=== PATIENT | male | born 1980 | race Caucasian/White ===

== ENCOUNTER 2017-08-23 12:15 | Inpatient (IN) | payer OTHER ==
[2017-08-23 13:54] VITALS: BMI 23.2
--- NOTE | 2017-08-23 14:43 | HP ---
CIWA Score - CIWA Score Nausea/Vomitin Muscle Tremors: 3 Anxiety: 3 Agitation: 3 Paroxysmal Sweats: 2 Orientation: 0-Oriented Tacttile Disturbances: 2-Mild Itch/Numbness/Burn Auditory Disturbances: 2-Mild Harshness/Frighten Visual Disturbances: 1-Very Mild Sensitivity Headache: 2-Mild CIWA-Ar Total Score: 21 Admission ROS BHS - HPI Chief Complaint: I NEED HELP TO STOP XANAX,COCAINE,MARIJUANA,HEROIN,MMTP 50 MGS/DAY Allergies/Adverse Reactions: Allergies Allergy/AdvReac Type Severity Reaction Status Date / Time No Known Drug Allergies Allergy Verified 06/18/15 17:49 shellfish derived Allergy Verified 08/23/17 14:39 History of Present Illness: THIS 36 YEARS OLD MALE WITH XANAX,COCAINE,MARIJUANA DEPENDENCE,HEROIN ABUSED, MMTP 50 MGS/DAY SYNCOPE DRUG RELATED HEPATITIS C S/P LEFT HIP REPLACEMENT ANXIETY,DEPRESSION,ADHD NICOTINE DEPENDENCE S/P LEFT HIP REPLACEMENT FOR OSTEOPOROSIS IN 07/25 AT [facility] CHRONIC WEIGHT LOSS LONGEST PERIOD OF SOBRIETY 2 YEARS Exam Limitations: No Limitations - Ebola screening Have you traveled outside of the country in the last 21 days: No (N) Have you had contact with anyone from an Ebola affected area: No Have you been sick,other than usual withdrawal symptoms: No Do you have a fever: No - Review of Systems Constitutional: Chills, Loss of Appetite, Malaise, Night Sweats, Changes in sleep, Weakness, Unintentional Wgt. Loss EENT: reports: Tearing, Nose Congestion Respiratory: reports: No Symptoms reported, Other (HISTORY OF ASTHMA) Cardiac: reports: No Symptoms Reported GI: reports: Diarrhea, Nausea, Poor Appetite, Vomiting, Abdominal cramping : reports: No Symptoms Reported Musculoskeletal: reports: Back Pain, Joint Pain, Joint Stiffness, Other (SCAR LEFT HIP) Integumentary: reports: Dryness Neuro: reports: Headache, Tremors Endocrine: reports: No Symptoms Reported Hematology: reports: No Symptoms Reported Psychiatric: reports: No Sypmtoms Reported, Judgement Intact, Mood/Affect Appropiate, Orientated x3, Anxious, Depressed, other (ADHD) Patient History - Patient Medical History Hx Asthma: Yes (ON ALBUEROL INHALER) Hx Chronic Obstructive Pulmonary Disease (COPD): No Hx Cancer: No Hx Cardiac Disorders: No Hx Congestive Heart Failure: No Hx Hypertension: No Hx Hypercholesterolemia: No Hx Pacemaker: No HX Cerebrovascular Accident: No Hx Seizures: No Hx Dementia: No Hx Diabetes: No Hx Gastrointestinal Disorders: No Hx Liver Disease: No Hx Genitourinary Disorders: No Hx Sexually Transmitted Disorders: No Hx Renal Disease (ESRD): No Hx Thyroid Disease: No Hx Human Immunodeficiency Virus (HIV): No (LAST 04/24 NEGATIVE) Hx Hepatitis C: Yes (NO TREATMENT,FOLLOW UP WITH PMD) Hx Depression: Yes (ANXIETY,ADHD) Hx Suicide Attempt: No Hx Bipolar Disorder: No Hx Schizophrenia: No Other Medical History: NO SUICIDAL,NO HOMICIDAL,BACK PAIN,S/P LEFTR HIP REPLACEMANT - Patient Surgical History Past Surgical History: Yes Hx Orthopedic Surgery: Yes (S/P LEFT HIP REPLACEMENT IN 07/25) - PPD History Previous Implant?: Yes Documented Results: Negative w/o proof Implanted On Prior [facility] Admission?: Yes Date: 06/20/15 PPD to be Administered?: Yes - Smoking Cessation Smoking history: Current every day smoker Have you smoked in the past 12 months: Yes Aproximately how many cigarettes per day: 20 Hx Chewing Tobacco Use: No Initiated information on smoking cessation: Yes 'Breaking Loose' booklet given: 08/23/17 - Substance & Tx. History Hx Alcohol Use: No Hx Substance Use: Yes Substance Use Type: Cocaine, Heroin, Marijuana, Tranquilizers Hx Substance Use Treatment: Yes (LAST 07/25 [facility]) - Substances Abused Alprazolam (Xanax) Route: Oral Frequency: Daily Amount used: 10mg Age of first use: 34 Date of Last Use: 08/22/17 Heroin Route: Injection Frequency: Daily Amount used: 2 bags Age of first use: 24 Date of Last Use: 08/21/17 Cocaine Route: Injection Frequency: Daily Amount used: $80 Age of first use: 24 Date of Last Use: 08/22/17 Marijuana/Hashish Route: Smoking Frequency: Daily Amount used: 2-3 puffs Age of first use: 17 Date of Last Use: 08/23/17 Family Disease History - Family Disease History Family History: Denies Admission Physical Exam BHS - Vital Signs Vital Signs: Vital Signs - 24 hr 08/23/17 13:48 Temperature 97.7 F Pulse Rate 79 Respiratory 18 Rate Blood Pressure 113/64 - Physical General Appearance: Yes: Moderate Distress, Tremorous, Irritable, Sweating, Anxious HEENTM: Yes: Normal ENT Inspection, MARAH, Pharynx Normal Respiratory: Yes: No Respiratory Distress, Wheezing Neck: Yes: Within Normal Limits, Supple, Trachea in good position Breast: Yes: Within Normal Limits Cardiology: Yes: Within Normal Limits, Regular Rhythm, Regular Rate, S1, S2 Abdominal: Yes: Within Normal Limits, Normal Bowel Sounds, Non Tender, Flat, Soft Genitourinary: Yes: Within Normal Limits Back: Yes: Muscle Spasm Musculoskeletal: Yes: full range of Motion, Back pain, Muscle Pain Extremities: Yes: Tremors, Other (S/P LEFT HIP REPLACEMENT) 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: 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 NML intact, Alert, Motor Strength 5/5, Normal Mood /Affect Integumentary: Yes: Dry Lymphatic: Yes: Within Normal Limits - Diagnostic (1) Sedative hypnotic or anxiolytic dependence Current Visit: No Status: Acute (2) Cocaine dependence with withdrawal Current Visit: No Status: Acute (3) Cannabis dependence Current Visit: Yes Status: Acute (4) Heroin abuse Current Visit: Yes Status: Acute (5) Attention deficit disorder (ADD) Current Visit: No Status: Acute (6) Bronchial asthma Current Visit: No Status: Chronic Qualifiers: Asthma severity: mild intermittent Asthma complication type: uncomplicated (7) Hepatitis C Current Visit: No Status: Chronic Qualifiers: Viral hepatitis chronicity: chronic Hepatic coma status: without hepatic coma Qualified Code(s): B18.2 - Chronic viral hepatitis C (8) Methadone maintenance therapy patient Current Visit: No Status: Chronic (9) Weight loss Current Visit: Yes Status: Acute Cleared for Admission [facility] - Detox or Rehab [facility] Level of Care: Medically Managed Detox Regimen/Protocol: Valium [facility] Breath Alcohol Content Breath Alcohol Content: 0 Urine Drug Screen - Results Drug Screen Negative: No Urine Drug Screen Results: THC-Marijuana, CARLITO-Cocaine, OPI-Opiates, BZO- Benzodiazepines, MTD-Methadone, TCA-Tricyclic Antidepress
[2017-08-23] MEDS ORDERED: P-EPHED 60MG/TRIPROLIDI 2.5MG TABLET PO PRN (15:05)
[2017-08-23] MEDS ORDERED: MAGNESIUM CITRATE 300 ML BOTTLE PO PRN (15:05)
[2017-08-23] MEDS ORDERED: MAGNESIUM HYDROX 2400MG/30ML ORAL SUSPENSION 30 ML CUP PO PRN (15:05)
[2017-08-23] MEDS ORDERED: IBUPROFEN 400 MG TABLET (FP) PO PRN (15:05)
[2017-08-23] MEDS ORDERED: guaiFENesin/D-METHORPHAN HB 10 ML UNIT-DOSE CUPS PO PRN (15:05)
[2017-08-23] MEDS ORDERED: LOPERAMIDE HCL 2 MG CAPSULE PO PRN (15:05)
[2017-08-23] MEDS ORDERED: ACETAMINOPHEN 325 MG TABLET (FP) PO PRN (15:05)
[2017-08-23] MEDS ORDERED: MENTHOL/PHENOL 1 EACH UD MM PRN (15:05)
[2017-08-23] MEDS ORDERED: ALBUTEROL SO4 18 GM HFA INHALER IH PRN (15:09)
[2017-08-23] MEDS ORDERED: diazePAM 5 MG TABLET PO ONE (17:00)
[2017-08-23] MEDS: THIAMINE HCL 100 MG TABLET (FP) PO SCH (22:26)
[2017-08-23] MEDS: MAG HYDROX/AL HYDROX/SIMETH 30 ML UNIT-DOSE CUP PO PRN (22:27)
[2017-08-23] MEDS: diazePAM 5 MG TABLET PO SCH (22:27)
[2017-08-23 23:34] LABS: URINE APPEARANCE TURBID; URINE BILIRUBIN NEGATIVE (NEGATIVE); URINE BLOOD NEGATIVE (NEGATIVE); URINE COLOR YELLOW; URINE GLUCOSE (UA) NEGATIVE (NEGATIVE); URINE KETONE NEGATIVE (NEGATIVE); URINE LEUK ESTERASE NEGATIVE (NEGATIVE); URINE NITRITE NEGATIVE (NEGATIVE); URINE PROTEIN NEGATIVE (NEGATIVE); URINE UROBILINOGEN NEGATIVE mg/dL (0.2-1.0)
[2017-08-24] MEDS: diazePAM 5 MG TABLET PO PRN ×2 (03:40→17:15)
[2017-08-24] MEDS: diazePAM 5 MG TABLET PO SCH ×3 (05:37→21:58)
[2017-08-24] MEDS ORDERED: METHADONE HCL 40 MG DISPERSABLE TABLET PO SCH (08:30)
--- NOTE | 2017-08-24 09:20 | EKG ---
Test Reason : Blood Pressure : / mmHG Vent. Rate : 062 BPM Atrial Rate : 062 BPM P-R Int : 162 ms QRS Dur : 100 ms QT Int : 408 ms P-R-T Axes : 015 085 078 degrees QTc Int : 414 ms NORMAL SINUS RHYTHM WITH SINUS ARRHYTHMIA NO PREVIOUS ECGS AVAILABLE Confirmed by ELIZABETH RICHARDSON MD ([id number]) on 08/24/2017 9:20:20 AM Referred By: Confirmed By:ELIZABETH RICHARDSON MD
[2017-08-24] MEDS ORDERED: METHADONE HCL 10 MG TABLET ONE (09:25)
[2017-08-24] MEDS ORDERED: METHADONE HCL 40 MG DISPERSABLE TABLET ONE (09:25)
[2017-08-24] MEDS ORDERED: METHADONE 40 MG, METHADONE 10 MG PO ONE (09:30)
[2017-08-24 09:53] LABS: HEMATOCRIT 42.4 % (35.4-49); MCH 26.3 pg (25.7-33.7); MCHC 30.6 g/dl (32.0-35.9); MEAN CELL VOLUME 85.8 fl (80-96); MEAN PLT VOLUME 7.8 fl (7.5-11.1); PLATELET COUNT 295 K/MM3 (134-434); RBC 4.94 M/mm3 (4.00-5.60); RDW 16.9 % (11.9-15.9); WHITE BLOOD COUNT 6.4 K/mm3 (4.0-10.0)
[2017-08-24 10:06] LABS: ANION GAP 9 (8-16); BLOOD UREA NITROGEN 15 mg/dL (7-18); CALCIUM 8.7 mg/dL (8.5-10.1); CHLORIDE 104 mmol/L (98-107); CO2 27 mmol/L (21-32); GLUCOSE,RANDOM 90 mg/dL (74-106); POTASSIUM 3.8 mmol/L (3.5-5.1); SODIUM 140 mmol/L (136-145)
[2017-08-24 10:13] LABS: ALK PHOS 107 U/L (45-117); BILIRUBIN,TOTAL 0.2 mg/dL (0.2-1.0); SGOT/AST 37 U/L (15-37); SGPT/ALT 61 U/L (12-78); TOT PROT 6.9 g/dl (6.4-8.2)
--- NOTE | 2017-08-24 10:38 | PN ---
S CIWA - CIWA Score Nausea/Vomitin Muscle Tremors: 3 Anxiety: 3 Agitation: 3 Paroxysmal Sweats: 1-Minimal Palms Moist Orientation: 0-Oriented Tacttile Disturbances: 1-Very Mild Itch/Numbness Auditory Disturbances: 1-Very Mild Visual Disturbances: 0-None Headache: 2-Mild CIWA-Ar Total Score: 17 BHS Progress Note (SOAP) Subjective: alert,irritable,anxious,interrupted sleep,tremor,pain in the body Objective: 08/24/17 10:34 Last Vital Signs Temp Pulse Resp BP Pulse Ox 97.7 F 56 L 18 117/57 08/24/17 06:00 08/24/17 06:00 08/24/17 06:00 08/24/17 06:00 08/24/17 10:35 ekg nsr with sinus arrhythmia Laboratory Last Values WBC 6.4 K/mm3 (4.0-10.0) 08/24/17 07:30 RBC 4.94 M/mm3 (4.00-5.60) 08/24/17 07:30 Hgb 13.0 GM/dL (11.7-16.9) 08/24/17 07:30 Hct 42.4 % (35.4-49) 08/24/17 07:30 MCV 85.8 fl (80-96) 08/24/17 07:30 MCH 26.3 pg (25.7-33.7) D 08/24/17 07:30 MCHC 30.6 g/dl (32.0-35.9) L 08/24/17 07:30 RDW 16.9 % (11.9-15.9) H D 08/24/17 07:30 Plt Count 295 K/MM3 (134-434) 08/24/17 07:30 MPV 7.8 fl (7.5-11.1) 08/24/17 07:30 Sodium 140 mmol/L (136-145) 08/24/17 07:30 Potassium 3.8 mmol/L (3.5-5.1) 08/24/17 07:30 Chloride 104 mmol/L (98-107) 08/24/17 07:30 Carbon Dioxide 27 mmol/L (21-32) 08/24/17 07:30 Anion Gap 9 (8-16) 08/24/17 07:30 BUN 15 mg/dL (7-18) D 08/24/17 07:30 Creatinine 1.0 mg/dL (0.7-1.3) 08/24/17 07:30 Creat Clearance w eGFR > 60 (>60) 08/24/17 07:30 Random Glucose 90 mg/dL (74-106) 08/24/17 07:30 Calcium 8.7 mg/dL (8.5-10.1) 08/24/17 07:30 Total Bilirubin 0.2 mg/dL (0.2-1.0) D 08/24/17 07:30 AST 37 U/L (15-37) 08/24/17 07:30 ALT 61 U/L (12-78) 08/24/17 07:30 Alkaline Phosphatase 107 U/L (45-117) 08/24/17 07:30 Total Protein 6.9 g/dl (6.4-8.2) 08/24/17 07:30 Albumin 3.0 g/dl (3.4-5.0) L 08/24/17 07:30 Urine Color Yellow 08/23/17 23:10 Urine Appearance Turbid 08/23/17 23:10 Urine pH 5.0 (5.0-8.0) 08/23/17 23:10 Ur Specific [place] 1.020 (1.001-1.035) 08/23/17 23:10 Urine Protein Negative (NEGATIVE) 08/23/17 23:10 Urine Glucose (UA) Negative (NEGATIVE) 08/23/17 23:10 Urine Ketones Negative (NEGATIVE) 08/23/17 23:10 Urine Blood Negative (NEGATIVE) 08/23/17 23:10 Urine Nitrite Negative (NEGATIVE) 08/23/17 23:10 Urine Bilirubin Negative (NEGATIVE) 08/23/17 23:10 Urine Urobilinogen Negative mg/dL (0.2-1.0) 08/23/17 23:10 Ur Leukocyte Esterase Negative (NEGATIVE) 08/23/17 23:10 Assessment: 08/24/17 10:36 withdrawal symptom Plan: continue detox
[2017-08-24] MEDS: PRENATAL VITAMINS W/ FOLIC ACID TABLET (FP) PO SCH (10:40)
[2017-08-24] MEDS: MAG HYDROX/AL HYDROX/SIMETH 30 ML UNIT-DOSE CUP PO PRN (11:56)
--- NOTE | 2017-08-24 12:38 | CONSULT ---
[facility] Psychiatric Consult - Data Date of interview: 08/24/17 Admission source: [facility] Identifying data: Pt. is a 36 year old male, single, father of one, unemployed, and homeless. This is one of multiple admissions for patient. Pt. admitted for cocaine, heroin, benzodiazepine, and marijuana cannabis. Substance Abuse History: Following information confirmed with Ms. Juarez: Smoking Cessation. Smoking history: Current every day smoker. Have you smoked in the past 12 months: Yes. Aproximately how many cigarettes per day: 20. Hx Chewing Tobacco Use: No. Initiated information on smoking cessation: Yes. ' Breaking Loose' booklet given: 08/23/17. - Substance & Tx. History. Hx Alcohol Use: No. Hx Substance Use: Yes. Substance Use Type: Cocaine, Heroin, Marijuana, Tranquilizers. Hx Substance Use [facility]: Yes ([facility] . - Substances Abused. Alprazolam (Xanax). Route: Oral. Frequency: Daily. Amount used: 10mg. Age of first use: 34. Date of Last Use: 08/22/17. Heroin. Route: Injection. Frequency: Daily. Amount used: 2 bags. Age of first use: 24. Date of Last Use: 08/21/17. Cocaine. Route: Injection. Frequency: Daily. Amount used: $80. Age of first use: 24. Date of Last Use: 08/22/17. Marijuana/Hashish. Route: Smoking. Frequency: Daily. Amount used: 2-3 puffs. Age of first use: 17 Medical History: Asthma, Hep C Psychiatric History: Patient's first encounter with a psychiatrist was at the age of [age]. Pt. was diagnosed with ADHD and started on Ritalin. Reports taking Ritalin from [age] years of age. Most recent outpatient psychiatric care was provided five months ago by Dr. Roberson in the [place]. Pt. reports being prescribed klonopin. Pt. denies h/o psychiatric hospitalization and suicide attempt. Physical/Sexual Abuse/Trauma History: Denies. Mental Status Exam - Mental Status Exam Alert and Oriented to: Time, Place, Person Cognitive Function: Good Patient Appearance: Well Groomed Mood: Euthymic Affect: Mood Congruent Patient Behavior: Cooperative Speech Pattern: Appropriate Voice Loudness: Normal Thought Process: Goal Oriented Thought Disorder: Not Present Hallucinations: Denies Suicidal Ideation: Denies Homicidal Ideation: Denies Insight/Judgement: Poor Sleep: Poorly Appetite: Fair Muscle strength/Tone: Normal Gait/Station: Normal Psychiatric Findings - Problem List ([place] 1, 2,3) (1) Cannabis dependence Current Visit: Yes Status: Acute (2) Sedative hypnotic or anxiolytic dependence Current Visit: Yes Status: Acute (3) Nicotine dependence Current Visit: Yes Status: Chronic Qualifiers: Nicotine product type: cigarettes Substance use status: uncomplicated Qualified Code(s): F17.210 - Nicotine dependence, cigarettes, uncomplicated (4) Substance-induced sleep disorder Current Visit: Yes Status: Acute (5) Cocaine dependence Current Visit: Yes Status: Acute - Initial Treatment Plan Initial Treatment Plan: Psychoeducation provided. Detoxification progress. Ambien 10mg qhs PRN. Benefits and side effects (sleep walking) discussed. Verbal consent given. Will continue to monitor.
[2017-08-24] MEDS: hydrOXYzine PAMOATE 25 MG CAPSULE (FP) PO PRN ×2 (17:16→22:00)
[2017-08-24] MEDS: ZOLPIDEM TARTRATE 10 MG TABLET (PARK CARE ONLY) PO PRN (21:58)
[2017-08-24] MEDS: THIAMINE HCL 100 MG TABLET (FP) PO SCH (21:58)
[2017-08-25] MEDS: MAG HYDROX/AL HYDROX/SIMETH 30 ML UNIT-DOSE CUP PO PRN ×3 (01:57→22:38)
[2017-08-25] MEDS: diazePAM 5 MG TABLET PO PRN ×3 (01:57→14:39)
[2017-08-25] MEDS ORDERED: METHADONE HCL 40 MG DISPERSABLE TABLET ONE (05:14)
[2017-08-25] MEDS ORDERED: METHADONE HCL 10 MG TABLET ONE (05:14)
[2017-08-25] MEDS: METHADONE 40 MG, METHADONE 10 MG PO SCH (05:49)
[2017-08-25] MEDS: diazePAM 5 MG TABLET PO SCH ×2 (10:29→22:36)
[2017-08-25] MEDS: PRENATAL VITAMINS W/ FOLIC ACID TABLET (FP) PO SCH (10:29)
--- NOTE | 2017-08-25 11:57 | PN ---
S CIWA - CIWA Score Nausea/Vomitin Muscle Tremors: 3 Anxiety: 3 Agitation: 2 Paroxysmal Sweats: 2 Orientation: 0-Oriented Tacttile Disturbances: 1-Very Mild Itch/Numbness Auditory Disturbances: 1-Very Mild Visual Disturbances: 0-None Headache: 2-Mild CIWA-Ar Total Score: 17 S Progress Note (SOAP) Subjective: ALERT,IRRITABLE,ANXIOUS,INTERRUPTED SLEEP,TREMOR,INTERRUPTED SLEEP, Objective: 08/25/17 11:56 Vital Signs Temperature 98.1 F 08/25/17 09:53 Pulse Rate 66 08/25/17 09:53 Respiratory Rate 18 08/25/17 09:53 Blood Pressure 105/54 08/25/17 09:53 O2 Sat by Pulse Oximetry (%) 08/25/17 11:57 Laboratory Last Values WBC 6.4 K/mm3 (4.0-10.0) 08/24/17 07:30 RBC 4.94 M/mm3 (4.00-5.60) 08/24/17 07:30 Hgb 13.0 GM/dL (11.7-16.9) 08/24/17 07:30 Hct 42.4 % (35.4-49) 08/24/17 07:30 MCV 85.8 fl (80-96) 08/24/17 07:30 MCH 26.3 pg (25.7-33.7) D 08/24/17 07:30 MCHC 30.6 g/dl (32.0-35.9) L 08/24/17 07:30 RDW 16.9 % (11.9-15.9) H D 08/24/17 07:30 Plt Count 295 K/MM3 (134-434) 08/24/17 07:30 MPV 7.8 fl (7.5-11.1) 08/24/17 07:30 Sodium 140 mmol/L (136-145) 08/24/17 07:30 Potassium 3.8 mmol/L (3.5-5.1) 08/24/17 07:30 Chloride 104 mmol/L (98-107) 08/24/17 07:30 Carbon Dioxide 27 mmol/L (21-32) 08/24/17 07:30 Anion Gap 9 (8-16) 08/24/17 07:30 BUN 15 mg/dL (7-18) D 08/24/17 07:30 Creatinine 1.0 mg/dL (0.7-1.3) 08/24/17 07:30 Creat Clearance w eGFR > 60 (>60) 08/24/17 07:30 Random Glucose 90 mg/dL (74-106) 08/24/17 07:30 Calcium 8.7 mg/dL (8.5-10.1) 08/24/17 07:30 Total Bilirubin 0.2 mg/dL (0.2-1.0) D 08/24/17 07:30 AST 37 U/L (15-37) 08/24/17 07:30 ALT 61 U/L (12-78) 08/24/17 07:30 Alkaline Phosphatase 107 U/L (45-117) 08/24/17 07:30 Total Protein 6.9 g/dl (6.4-8.2) 08/24/17 07:30 Albumin 3.0 g/dl (3.4-5.0) L 08/24/17 07:30 Urine Color Yellow 08/23/17 23:10 Urine Appearance Turbid 08/23/17 23:10 Urine pH 5.0 (5.0-8.0) 08/23/17 23:10 Ur Specific [place] 1.020 (1.001-1.035) 08/23/17 23:10 Urine Protein Negative (NEGATIVE) 08/23/17 23:10 Urine Glucose (UA) Negative (NEGATIVE) 08/23/17 23:10 Urine Ketones Negative (NEGATIVE) 08/23/17 23:10 Urine Blood Negative (NEGATIVE) 08/23/17 23:10 Urine Nitrite Negative (NEGATIVE) 08/23/17 23:10 Urine Bilirubin Negative (NEGATIVE) 08/23/17 23:10 Urine Urobilinogen Negative mg/dL (0.2-1.0) 08/23/17 23:10 Ur Leukocyte Esterase Negative (NEGATIVE) 08/23/17 23:10 RPR Titer Nonreactive (NONREACTIVE) 08/24/17 07:30 HIV 1&2 Antibody Screen Negative 08/23/17 14:00 HIV P24 Antigen Negative 08/23/17 14:00 Assessment: 08/25/17 11:59 WITHDRAWAL SYMPTOM Plan: CONTINUE DETOX,PATIENT IS KNOWN CASE OF HEPATITIS C HAS BEEN FOLLOW UP WITH HIS PMD AWAITING FOR TREATMENT
--- NOTE | 2017-08-25 12:21 | EKG ---
Test Reason : Blood Pressure : / mmHG Vent. Rate : 062 BPM Atrial Rate : 062 BPM P-R Int : 174 ms QRS Dur : 108 ms QT Int : 452 ms P-R-T Axes : 053 083 078 degrees QTc Int : 458 ms NORMAL SINUS RHYTHM WITH SINUS ARRHYTHMIA NORMAL ECG WHEN COMPARED WITH ECG OF 23-AUG-2017 19:08, NO SIGNIFICANT CHANGE WAS FOUND Confirmed by JEVON LEVI MD ([id number]) on 08/25/2017 12:21:09 PM Referred By: Confirmed By:JEVON LEVI MD
[2017-08-25] MEDS: PANTOPRAZOLE 40 MG TABLET (FP) PO SCH (18:17)
[2017-08-25] MEDS: THIAMINE HCL 100 MG TABLET (FP) PO SCH (22:36)
[2017-08-25] MEDS: ZOLPIDEM TARTRATE 10 MG TABLET (PARK CARE ONLY) PO PRN (22:36)
[2017-08-26] MEDS: diazePAM 5 MG TABLET PO PRN ×3 (00:54→13:39)
[2017-08-26] MEDS ORDERED: METHADONE HCL 40 MG DISPERSABLE TABLET ONE (05:03)
[2017-08-26] MEDS ORDERED: METHADONE HCL 10 MG TABLET ONE (05:03)
[2017-08-26] MEDS: METHADONE 40 MG, METHADONE 10 MG PO SCH (05:04)
[2017-08-26] MEDS: PRENATAL VITAMINS W/ FOLIC ACID TABLET (FP) PO SCH (10:42)
[2017-08-26] MEDS: PANTOPRAZOLE 40 MG TABLET (FP) PO SCH (10:43)
[2017-08-26] MEDS: diazePAM 5 MG TABLET PO SCH ×2 (10:43→23:01)
[2017-08-26] MEDS: hydrOXYzine PAMOATE 25 MG CAPSULE (FP) PO PRN (10:44)
--- NOTE | 2017-08-26 12:11 | PN ---
BHS Progress Note (SOAP) Subjective: alert oriented x 3 calm no sweat less tremor tolerate food and fluid well Objective: 08/26/17 12:10 Vital Signs Temperature 98.6 F 08/26/17 11:19 Pulse Rate 62 08/26/17 11:19 Respiratory Rate 20 08/26/17 11:19 Blood Pressure 94/56 08/26/17 11:19 O2 Sat by Pulse Oximetry (%) Laboratory Last Values WBC 6.4 K/mm3 (4.0-10.0) 08/24/17 07:30 RBC 4.94 M/mm3 (4.00-5.60) 08/24/17 07:30 Hgb 13.0 GM/dL (11.7-16.9) 08/24/17 07:30 Hct 42.4 % (35.4-49) 08/24/17 07:30 MCV 85.8 fl (80-96) 08/24/17 07:30 MCH 26.3 pg (25.7-33.7) D 08/24/17 07:30 MCHC 30.6 g/dl (32.0-35.9) L 08/24/17 07:30 RDW 16.9 % (11.9-15.9) H D 08/24/17 07:30 Plt Count 295 K/MM3 (134-434) 08/24/17 07:30 MPV 7.8 fl (7.5-11.1) 08/24/17 07:30 Sodium 140 mmol/L (136-145) 08/24/17 07:30 Potassium 3.8 mmol/L (3.5-5.1) 08/24/17 07:30 Chloride 104 mmol/L (98-107) 08/24/17 07:30 Carbon Dioxide 27 mmol/L (21-32) 08/24/17 07:30 Anion Gap 9 (8-16) 08/24/17 07:30 BUN 15 mg/dL (7-18) D 08/24/17 07:30 Creatinine 1.0 mg/dL (0.7-1.3) 08/24/17 07:30 Creat Clearance w eGFR > 60 (>60) 08/24/17 07:30 Random Glucose 90 mg/dL (74-106) 08/24/17 07:30 Calcium 8.7 mg/dL (8.5-10.1) 08/24/17 07:30 Total Bilirubin 0.2 mg/dL (0.2-1.0) D 08/24/17 07:30 AST 37 U/L (15-37) 08/24/17 07:30 ALT 61 U/L (12-78) 08/24/17 07:30 Alkaline Phosphatase 107 U/L (45-117) 08/24/17 07:30 Total Protein 6.9 g/dl (6.4-8.2) 08/24/17 07:30 Albumin 3.0 g/dl (3.4-5.0) L 08/24/17 07:30 Urine Color Yellow 08/23/17 23:10 Urine Appearance Turbid 08/23/17 23:10 Urine pH 5.0 (5.0-8.0) 08/23/17 23:10 Ur Specific [place] 1.020 (1.001-1.035) 08/23/17 23:10 Urine Protein Negative (NEGATIVE) 08/23/17 23:10 Urine Glucose (UA) Negative (NEGATIVE) 08/23/17 23:10 Urine Ketones Negative (NEGATIVE) 08/23/17 23:10 Urine Blood Negative (NEGATIVE) 08/23/17 23:10 Urine Nitrite Negative (NEGATIVE) 08/23/17 23:10 Urine Bilirubin Negative (NEGATIVE) 08/23/17 23:10 Urine Urobilinogen Negative mg/dL (0.2-1.0) 08/23/17 23:10 Ur Leukocyte Esterase Negative (NEGATIVE) 08/23/17 23:10 RPR Titer Nonreactive (NONREACTIVE) 08/24/17 07:30 HIV 1&2 Antibody Screen Negative 08/23/17 14:00 HIV P24 Antigen Negative 08/23/17 14:00 lab noted Assessment: 08/26/17 12:11 mild withdrawal sx Plan: medically supervised detox
[2017-08-26] MEDS: ZOLPIDEM TARTRATE 10 MG TABLET (PARK CARE ONLY) PO PRN (23:01)
[2017-08-26] MEDS: THIAMINE HCL 100 MG TABLET (FP) PO SCH (23:01)
[2017-08-27] MEDS ORDERED: METHADONE HCL 40 MG DISPERSABLE TABLET ONE (04:20)
[2017-08-27] MEDS ORDERED: METHADONE HCL 10 MG TABLET ONE (04:20)
[2017-08-27] MEDS: METHADONE 40 MG, METHADONE 10 MG PO SCH (05:37)
[2017-08-27 06:51] VITALS: BP 124/67; PULSE 60; TEMP 98.5
--- NOTE | 2017-08-27 08:30 | DS ---
[facility] Detox Discharge Summary Admission Date: 08/23/17 Discharge Date: 08/27/17 - History Present History: Cannabis Dependence, Cocaine Dependence, Sedative Dependence Additional Comments: follow up with after care program as arrangement Pertinent Past History: bronchial asthma hepatitis c methadone maintenance therapy patient weight loss - Physical Exam Results Vital Signs: Vital Signs Temperature 98.5 F 08/27/17 06:00 Pulse Rate 60 08/27/17 06:00 Respiratory Rate 18 08/27/17 06:00 Blood Pressure 124/67 08/27/17 06:00 O2 Sat by Pulse Oximetry (%) Pertinent Admission Physical Exam Findings: withdrawal sign and symptom - Treatment Hospital Course: Detox Protocol Followed, Detoxed Safely, Responded well, Discharged Condition Good Patient has Accepted a Rehab Referral to: declined - Medication Discharge Medications: Ambulatory Orders Albuterol Sulfate Inhaler - [Ventolin Hfa Inhaler -] 2 inh PO Q4H PRN 06/18/15 - Diagnosis (1) Sedative hypnotic or anxiolytic dependence Current Visit: Yes Status: Acute (2) Cocaine dependence with withdrawal Current Visit: Yes Status: Acute (3) Cannabis dependence Current Visit: Yes Status: Acute (4) Heroin abuse Current Visit: Yes Status: Acute (5) Attention deficit disorder (ADD) Current Visit: No Status: Chronic (6) Bronchial asthma Current Visit: No Status: Chronic Qualifiers: Asthma severity: mild intermittent Asthma complication type: uncomplicated (7) Hepatitis C Current Visit: No Status: Chronic Qualifiers: Viral hepatitis chronicity: chronic Hepatic coma status: without hepatic coma Qualified Code(s): B18.2 - Chronic viral hepatitis C (8) Methadone maintenance therapy patient Current Visit: No Status: Chronic (9) Weight loss Current Visit: Yes Status: Acute - AMA Did Patient Leave Against Medical Advice: No
[2017-08-27] MEDS: PRENATAL VITAMINS W/ FOLIC ACID TABLET (FP) PO SCH (09:20)
[2017-08-27] MEDS: hydrOXYzine PAMOATE 25 MG CAPSULE (FP) PO PRN (09:21)
[2017-08-27] MEDS: PANTOPRAZOLE 40 MG TABLET (FP) PO SCH (09:22)
[2017-08-27] MEDS ORDERED: diazePAM 5 MG TABLET PO SCH (10:00)
== END 2017-08-27 09:27 | disposition home or self-care (01) | DRG 773 ==
LOC: YASAS 12:15 → Y6N 16:09
PROVIDERS: ADMIT Internal Medicine; ATTEND Internal Medicine
PROC: HZ2ZZZZ Detoxification Services for Substance Abuse Treatment (ICD-10-PCS; principal; 2017-08-23)
DX: F13.230 Sedative, hypnotic or anxiolytic dependence with withdrawal, uncomplicated (principal); F11.20 Opioid dependence, uncomplicated; F14.20 Cocaine dependence, uncomplicated; F12.20 Cannabis dependence, uncomplicated; F17.210 Nicotine dependence, cigarettes, uncomplicated; F90.9 Attention-deficit hyperactivity disorder, unspecified type; F19.282 Other psychoactive substance dependence with psychoactive substance-induced sleep disorder; J45.20 Mild intermittent asthma, uncomplicated; B18.2 Chronic viral hepatitis C; I49.9 Cardiac arrhythmia, unspecified; Z96.642 Presence of left artificial hip joint; Z91.013 Allergy to seafood; Z87.898 Personal history of other specified conditions
CPT/HCPCS: 36415; 80053; 81003; 85027; 86593; 87389; 87522; 93005; 93010

== ENCOUNTER 2019-06-26 15:36 | Inpatient (IN) | payer OTHER ==
[2019-06-26 17:25] VITALS: BMI 27.4
--- NOTE | 2019-06-26 18:25 | HP ---
CIWA Score Nausea/Vomitin-No Nausea/No Vomiting Muscle Tremors: None Anxiety: 4-Mod. Anxious/Guarded Agitation: 2 Paroxysmal Sweats: No Perspiration Orientation: 0-Oriented Tacttile Disturbances: 0-None Auditory Disturbances: 0-None Visual Disturbances: 0-None Headache: 0-None Present CIWA-Ar Total Score: 6 - Admission Criteria OASAS Guidelines: Admission for Medically Managed Detox: Requires at least one of the followin. CIWA greater than 12 2. Seizures within the past 24 hours 3. Delirium tremens within the past 24 hours 4. Hallucinations within the past 24 hours 5. Acute intervention needed for co occurring medical disorder 6. Acute intervention needed for co occurring psychiatric disorder 7. Severe withdrawal that cannot be handled at a lower level of care (continued vomiting, continued diarrhea, abnormal vital signs) requiring intravenous medication and/or fluids 8. Admitting History and Physical - Admission Chief Complaint: detox from benzos History of Present Illness: 38 yo f w/ PMH Asthma, GERD, HCV (treated), polysubstance abuse who comes into [facility] for assistance with detox from benzos. Patient endorses taking 4 xanax daily for the past 12 years with last use this AM. He endorses having seizures secondary to withdrawal in the past. Patient endorses using cocaine IV, approx. $30 per day since he was 23. His last use was last night. Patient states that he snorted 1 dime bag of herion this morning/ before this, he had not used heroin for 5 years and has been on a methadone program for the past 12 years. He endorses taking 100mg of methdone. He goes to the [facility] program. Ismaelt smokes 1ppd since he was 16. Patient uses 4 blunts of marijuana daily. CIWA 6 Will admit for detox 2/2 patient being severely anxious during the interview. History Source: Patient Limitations to Obtaining History: No Limitations - Past Medical History Pulmonary: Yes: Asthma Gastrointestinal: Yes: GERD Hepatobiliary: Yes: Hepatitis C - Past Surgical History Past Surgical History: Yes: Joint Replacement (hip in 2018) - Smoking History Smoking history: Current every day smoker Have you smoked in the past 12 months: Yes Aproximately how many cigarettes per day: 20 - Alcohol/Substance Use Hx Alcohol Use: No Admission ROS S - HPI Allergies/Adverse Reactions: Allergies Allergy/AdvReac Type Severity Reaction Status Date / Time No Known Drug Allergies Allergy Verified 06/26/19 17:05 shellfish derived Allergy Verified 06/26/19 17:05 - Ebola screening Have you traveled outside of the country in the last 21 days: No (NN) Have you had contact with anyone from an Ebola affected area: No Do you have a fever: No - Review of Systems Constitutional: Chills EENT: reports: No Symptoms Reported Respiratory: reports: Shortness of Breath, Wheezing Cardiac: reports: No Symptoms Reported GI: reports: No Symptoms Reported : reports: No Symptoms Reported Musculoskeletal: reports: Joint Pain, Muscle Pain Integumentary: reports: No Symptoms Reported Psychiatric: reports: Orientated x3 Patient History - Patient Medical History Hx Asthma: Yes (ON ALBUEROL INHALER) Hx Chronic Obstructive Pulmonary Disease (COPD): No Hx Cancer: No Hx Cardiac Disorders: No Hx Congestive Heart Failure: No Hx Hypertension: No Hx Hypercholesterolemia: No Hx Pacemaker: No HX Cerebrovascular Accident: No Hx Seizures: No Hx Dementia: No Hx Diabetes: No Hx Gastrointestinal Disorders: No Hx Liver Disease: No Hx Genitourinary Disorders: No Hx Sexually Transmitted Disorders: No Hx Renal Disease (ESRD): No Hx Thyroid Disease: No Hx Human Immunodeficiency Virus (HIV): No (LAST 04/24 NEGATIVE) Hx Hepatitis C: Yes (NO TREATMENT,FOLLOW UP WITH PMD) Hx Depression: Yes (ANXIETY,ADHD) Hx Suicide Attempt: No Hx Bipolar Disorder: No Hx Schizophrenia: No - Patient Surgical History Past Surgical History: Yes Hx Orthopedic Surgery: Yes (S/P LEFT HIP REPLACEMENT IN 07/25) - PPD History Date: 08/25/17 - Smoking Cessation Smoking history: Current every day smoker Have you smoked in the past 12 months: Yes Aproximately how many cigarettes per day: 20 Hx Chewing Tobacco Use: No Initiated information on smoking cessation: Yes 'Breaking Loose' booklet given: 06/26/19 - Substances abused Alprazolam (Xanax) Substance route: Oral Frequency: Daily Amount used: 5 pills Age of first use: 18 Date of last use: 06/26/19 Cocaine Substance route: Injection Frequency: Daily Amount used: 30 dollars Age of first use: 14 Date of last use: 06/25/19 Marijuana/Hashish Substance route: Smoking Frequency: Daily Amount used: 4 blunts Age of first use: 16 Date of last use: 06/26/19 Admission Physical Exam BHS - Vital Signs Vital Signs: Vital Signs - 24 hr 06/26/19 17:01 Temperature 97.8 F Pulse Rate 79 Respiratory 16 Rate - Physical General Appearance: Yes: Mild Distress HEENTM: Yes: EOMI, Normocephalic, Normal Voice, MARAH, Pharynx Normal Respiratory: Yes: Chest Non-Tender, No Respiratory Distress, No Accessory Muscle Use, Wheezing (inspiratory and expiratory) Cardiology: Yes: Regular Rhythm, Regular Rate, S1, S2. 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 II-XII NML intact, Fully Oriented, Alert, Motor Strength 5/5, Normal Mood/Affect, Normal Response Integumentary: Yes: Normal Color, Dry, Track Lopez - Diagnostic (1) Cocaine dependence Current Visit: No Status: Acute (2) Xanax use disorder, severe, dependence Current Visit: No Status: Acute (3) Bronchial asthma Current Visit: No Status: Chronic Qualifiers: Asthma severity: mild intermittent Asthma complication type: uncomplicated (4) Hepatitis C Current Visit: No Status: Chronic Qualifiers: Viral hepatitis chronicity: chronic Hepatic coma status: without hepatic coma Qualified Code(s): B18.2 - Chronic viral hepatitis C (5) Methadone maintenance therapy patient Current Visit: No Status: Chronic (6) Nicotine dependence Current Visit: No Status: Chronic Qualifiers: Nicotine product type: cigarettes Substance use status: uncomplicated Qualified Code(s): F17.210 - Nicotine dependence, cigarettes, uncomplicated Breathalyzer - Breathalyzer Breathalyzer: 0 Urine Drug Screen - Test Device Lot number: [id number] Expiration date: 02/04/21 - Control Is test valid?: Yes - Results Drug screen NEGATIVE: No Urine drug screen results: THC-Marijuana, CARLITO-Cocaine, FEN-Fentanyl, MOP-Opiates , MTD-Methadone, BZO-Benzodiazepines Inpatient Rehab Admission - Rehab Decision to Admit Inpatient rehab admission?: No
--- NOTE | 2019-06-26 19:08 | PN ---
"Teaching Attending Note Name of Resident: Brendan Rodriguez ATTENDING PHYSICIAN STATEMENT I saw and evaluated the patient. I reviewed the resident's note and discussed the case with the resident. I agree with the resident's findings and plan as documented. SUBJECTIVE:pt here for benzodiazepine use , reports 4 xanax/day , had w/d seizure in the past several years ago , latest use today . cocaine : 30 $ /day IV , latest use yesterday . Heroin : latest use today , 1 bag , MMTP x 12 years latest dose today . tobacco : 1 ppd . cannabis : 4 blunts/day PMH Asthma, GERD, HCV (treated), Search Terms: maryellen wheat, 1980 Search Date: 06/26/2019 07:07:38 PM This report was requested by: Sheron Almonte | Reference #: [id number] There are no results for the search terms that you entered. OBJECTIVE: wnwd , anxious , agitated . Resp : expiratory wheezing throughout lung rojas Vital Signs - 24 hr 06/26/19 17:01 Temperature 97.8 F Pulse Rate 79 Respiratory 16 Rate ASSESSMENT AND PLAN: Sedative abuse - Valium detox . Asthma - nebulizer tx"
[2019-06-26] MEDS ORDERED: MAGNESIUM HYDROX 2400MG/30ML ORAL SUSPENSION 30 ML CUP PO PRN (19:16)
[2019-06-26] MEDS ORDERED: BISMUTH SUBSALICYLATE 524 MG/30 ML UD PO PRN (19:16)
[2019-06-26] MEDS ORDERED: IBUPROFEN 400 MG TABLET (FP) PO PRN (19:16)
[2019-06-26] MEDS ORDERED: MENTHOL/PHENOL 1 EACH UD MM PRN (19:16)
[2019-06-26] MEDS ORDERED: MAGNESIUM CITRATE 300 ML BOTTLE PO PRN (19:16)
[2019-06-26] MEDS ORDERED: ACETAMINOPHEN 325 MG TABLET (FP) PO PRN ×2 (19:16)
[2019-06-26] MEDS: diazePAM 5 MG TABLET PO PRN (20:09)
[2019-06-26] MEDS: THIAMINE HCL 100 MG TABLET (FP) PO SCH (21:15)
[2019-06-26] MEDS: MAG HYDROX/AL HYDROX/SIMETH 30 ML UNIT-DOSE CUP PO PRN (21:15)
[2019-06-26] MEDS: diazePAM 5 MG TABLET PO SCH (21:15)
[2019-06-26] MEDS: MELATONIN 5 MG TABLETS PO PRN (21:15)
[2019-06-26] MEDS: ALBUTEROL SO4 8 GM HFA INHALER IH PRN (21:20)
[2019-06-27] MEDS: diazePAM 5 MG TABLET PO SCH (05:31)
[2019-06-27] MEDS: MAG HYDROX/AL HYDROX/SIMETH 30 ML UNIT-DOSE CUP PO PRN ×2 (06:19→15:22)
[2019-06-27] MEDS ORDERED: METHADONE HCL 10 MG TABLET PO SCH (07:15)
[2019-06-27] MEDS ORDERED: METHADONE HCL 10 MG TABLET ONE (07:43)
[2019-06-27] MEDS ORDERED: METHADONE HCL 40 MG DISPERSABLE TABLET ONE (07:44)
[2019-06-27] MEDS: METHADONE 80 MG, METHADONE 20 MG PO SCH (07:47)
[2019-06-27 10:31] LABS: HEMATOCRIT 40.5 % (35.4-49); HEMOGLOBIN 12.9 GM/dL (11.7-16.9); MCH 28.1 pg (25.7-33.7); MCHC 31.9 g/dl (32.0-35.9); MEAN PLT VOLUME 7.9 fl (7.5-11.1); PLATELET COUNT 381 K/MM3 (134-434); RDW 16.1 % (11.9-15.9); WHITE BLOOD COUNT 8.5 K/mm3 (4.0-10.0)
[2019-06-27] MEDS: NICOTINE 14 MG/24 HOURS TOPICAL PATCH TD SCH (10:41)
[2019-06-27] MEDS: PRENATAL VITAMINS W/ FOLIC ACID TABLET (FP) PO SCH (10:41)
[2019-06-27] MEDS: diazePAM 5 MG TABLET PO PRN (10:42)
[2019-06-27] MEDS: ALBUTEROL SO4 8 GM HFA INHALER IH PRN (10:44)
[2019-06-27 11:13] LABS: ALBUMIN 3.3 g/dl (3.4-5.0); BILIRUBIN,TOTAL 0.2 mg/dL (0.2-1); BLOOD UREA NITROGEN 11.4 mg/dL (7-18); CALCIUM 9.4 mg/dL (8.5-10.1); CREATININE 0.8 mg/dL (0.55-1.3); POTASSIUM 4.2 mmol/L (3.5-5.1); TOT PROT 7.7 g/dl (6.4-8.2)
--- NOTE | 2019-06-27 13:15 | PN ---
S CIWA - CIWA Score Nausea/Vomitin-No Nausea/No Vomiting Muscle Tremors: 3 Anxiety: 3 Agitation: 4-Moderately Restless Paroxysmal Sweats: 3 Orientation: 0-Oriented Tacttile Disturbances: 0-None Auditory Disturbances: 0-None Visual Disturbances: 0-None Headache: 0-None Present CIWA-Ar Total Score: 13 BHS Progress Note (SOAP) Subjective: sweats shakes irritable agitation restless interrupted sleep Objective: 06/27/19 13:14 Vital Signs Temperature 98.1 F 06/27/19 09:48 Pulse Rate 76 06/27/19 09:48 Respiratory Rate 06/27/19 09:48 Blood Pressure 105/65 06/27/19 09:48 O2 Sat by Pulse Oximetry (%) Laboratory Tests 06/27/19 06/27/19 08:00 08:00 WBC 8.5 RBC 4.60 Hgb 12.9 Hct 40.5 MCV 88.0 MCH 28.1 MCHC 31.9 L RDW 16.1 H Plt Count 381 D MPV 7.9 Sodium 141 Potassium 4.2 Chloride 104 Carbon Dioxide 28 Anion Gap 9 BUN 11.4 Creatinine 0.8 Est GFR (CKD-EPI)AfAm 131.34 Est GFR (CKD-EPI)NonAf 113.32 Random Glucose 80 Calcium 9.4 Total Bilirubin 0.2 AST 38 H ALT 23 Alkaline Phosphatase 112 Total Protein 7.7 Albumin 3.3 L aaox3 ambulating no acute distress Assessment: 06/27/19 13:14 withdrawals Plan: continue detox increase fluids valium d/c changed to ativan. pt request because valium is not helping.
[2019-06-27] MEDS: LORazepam 0.5 MG TABLET PO PRN (15:22)
[2019-06-27] MEDS: LORazepam 2 MG TABLET PO SCH ×2 (17:55→22:01)
[2019-06-27] MEDS: THIAMINE HCL 100 MG TABLET (FP) PO SCH (22:01)
[2019-06-27] MEDS: MELATONIN 5 MG TABLETS PO PRN (22:02)
[2019-06-28] MEDS ORDERED: METHADONE HCL 10 MG TABLET ONE (05:58)
[2019-06-28] MEDS ORDERED: METHADONE HCL 40 MG DISPERSABLE TABLET ONE (05:59)
[2019-06-28] MEDS ORDERED: diazePAM 5 MG TABLET PO SCH (06:00)
[2019-06-28] MEDS: LORazepam 2 MG TABLET PO SCH ×3 (06:16→17:05)
[2019-06-28] MEDS: METHADONE 80 MG, METHADONE 20 MG PO SCH (06:17)
[2019-06-28] MEDS: PRENATAL VITAMINS W/ FOLIC ACID TABLET (FP) PO SCH (10:07)
[2019-06-28] MEDS: NICOTINE 14 MG/24 HOURS TOPICAL PATCH TD SCH (10:07)
[2019-06-28] MEDS: hydrOXYzine PAMOATE 25 MG CAPSULE (FP) PO PRN (10:12)
[2019-06-28] MEDS: MAG HYDROX/AL HYDROX/SIMETH 30 ML UNIT-DOSE CUP PO PRN (13:49)
--- NOTE | 2019-06-28 14:22 | PN ---
S CIWA - CIWA Score Nausea/Vomitin-Mild Nausea/No Vomiting Muscle Tremors: 3 Anxiety: 3 Agitation: 3 Paroxysmal Sweats: 3 Orientation: 0-Oriented Tacttile Disturbances: 0-None Auditory Disturbances: 0-None Visual Disturbances: 0-None Headache: 1-Very Mild CIWA-Ar Total Score: 14 BHS Progress Note (SOAP) Subjective: pt here for alcohol and zanax detox- pt states he would like to go to rehab after leaving detox O: Vital Signs - 24 hr 06/27/19 06/27/19 06/28/19 18:22 21:01 00:30 Temperature 96.8 F L 97.7 F Pulse Rate 77 73 Respiratory 16 16 18 Rate Blood Pressure 102/62 100/60 06/28/19 06/28/19 06/28/19 03:30 07:56 09:55 Temperature 97.3 F L 97.5 F L Pulse Rate 65 66 Respiratory 18 18 16 Rate Blood Pressure 137/84 146/87 06/28/19 10:00 Temperature 97.5 F L Pulse Rate 66 Respiratory 16 Rate Blood Pressure 146/87 Laboratory Tests 06/27/19 06/27/19 06/27/19 08:00 08:00 08:00 WBC 8.5 RBC 4.60 Hgb 12.9 Hct 40.5 MCV 88.0 MCH 28.1 MCHC 31.9 L RDW 16.1 H Plt Count 381 D MPV 7.9 Sodium 141 Potassium 4.2 Chloride 104 Carbon Dioxide 28 Anion Gap 9 BUN 11.4 Creatinine 0.8 Est GFR (CKD-EPI)AfAm 131.34 Est GFR (CKD-EPI)NonAf 113.32 Random Glucose 80 Calcium 9.4 Total Bilirubin 0.2 AST 38 H ALT 23 Alkaline Phosphatase 112 Total Protein 7.7 Albumin 3.3 L RPR Titer Nonreactive a/p: Benzo use disorder- continue detox protocol
[2019-06-28] MEDS: MELATONIN 5 MG TABLETS PO PRN (22:12)
[2019-06-28] MEDS: THIAMINE HCL 100 MG TABLET (FP) PO SCH (22:12)
[2019-06-28] MEDS: LORazepam 0.5 MG TABLET PO PRN (22:15)
[2019-06-29] MEDS: MAG HYDROX/AL HYDROX/SIMETH 30 ML UNIT-DOSE CUP PO PRN (03:47)
[2019-06-29] MEDS ORDERED: METHADONE HCL 10 MG TABLET ONE (05:37)
[2019-06-29] MEDS ORDERED: METHADONE HCL 40 MG DISPERSABLE TABLET ONE (05:37)
[2019-06-29] MEDS: LORazepam 1 MG TABLET PO SCH ×4 (05:58→22:04)
[2019-06-29] MEDS: METHADONE 80 MG, METHADONE 20 MG PO SCH (05:58)
[2019-06-29] MEDS ORDERED: diazePAM 5 MG TABLET PO ONE (06:00)
[2019-06-29] MEDS: PRENATAL VITAMINS W/ FOLIC ACID TABLET (FP) PO SCH (10:19)
[2019-06-29] MEDS: NICOTINE 14 MG/24 HOURS TOPICAL PATCH TD SCH (10:19)
[2019-06-29] MEDS: hydrOXYzine PAMOATE 25 MG CAPSULE (FP) PO PRN (10:20)
--- NOTE | 2019-06-29 12:39 | PN ---
S CIWA - CIWA Score Nausea/Vomitin-No Nausea/No Vomiting Muscle Tremors: 2 Anxiety: 3 Agitation: 0-Normal Activity Paroxysmal Sweats: 3 Orientation: 0-Oriented Tacttile Disturbances: 0-None Auditory Disturbances: 0-None Visual Disturbances: 0-None Headache: 2-Mild CIWA-Ar Total Score: 10 S Progress Note (SOAP) Subjective: c/o anxiety, headache, shakes, and sweats. Objective: 06/29/19 12:38 Vital Signs 06/29/19 06/29/19 06:27 10:12 Temperature 97.7 F 98 F Pulse Rate 65 75 Respiratory 18 18 Rate Blood Pressure 117/74 120/73 Laboratory Last Values WBC 8.5 K/mm3 (4.0-10.0) 06/27/19 08:00 RBC 4.60 M/mm3 (4.00-5.60) 06/27/19 08:00 Hgb 12.9 GM/dL (11.7-16.9) 06/27/19 08:00 Hct 40.5 % (35.4-49) 06/27/19 08:00 MCV 88.0 fl (80-96) 06/27/19 08:00 MCH 28.1 pg (25.7-33.7) 06/27/19 08:00 MCHC 31.9 g/dl (32.0-35.9) L 06/27/19 08:00 RDW 16.1 % (11.9-15.9) H 06/27/19 08:00 Plt Count 381 K/MM3 (134-434) D 06/27/19 08:00 MPV 7.9 fl (7.5-11.1) 06/27/19 08:00 Sodium 141 mmol/L (136-145) 06/27/19 08:00 Potassium 4.2 mmol/L (3.5-5.1) 06/27/19 08:00 Chloride 104 mmol/L (98-107) 06/27/19 08:00 Carbon Dioxide 28 mmol/L (21-32) 06/27/19 08:00 Anion Gap 9 MMOL/L (8-16) 06/27/19 08:00 BUN 11.4 mg/dL (7-18) 06/27/19 08:00 Creatinine 0.8 mg/dL (0.55-1.3) 06/27/19 08:00 Est GFR (CKD-EPI)AfAm 131.34 06/27/19 08:00 Est GFR (CKD-EPI)NonAf 113.32 06/27/19 08:00 Random Glucose 80 mg/dL (74-106) 06/27/19 08:00 Calcium 9.4 mg/dL (8.5-10.1) 06/27/19 08:00 Total Bilirubin 0.2 mg/dL (0.2-1) 06/27/19 08:00 AST 38 U/L (15-37) H 06/27/19 08:00 ALT 23 U/L (13-61) 06/27/19 08:00 Alkaline Phosphatase 112 U/L (45-117) 06/27/19 08:00 Total Protein 7.7 g/dl (6.4-8.2) 06/27/19 08:00 Albumin 3.3 g/dl (3.4-5.0) L 06/27/19 08:00 RPR Titer Nonreactive (NONREACTIVE) 06/27/19 08:00 Labs noted. Assessment: 06/29/19 12:38 AOX3, in no acute respiratory distress. Full ROM, ambulating in the unit. Withdrawal symptoms Plan: continue detox.
[2019-06-29] MEDS: LORazepam 0.5 MG TABLET PO PRN (12:47)
[2019-06-29] MEDS: METHOCARBAMOL 500 MG TABLET PO PRN (12:47)
[2019-06-29] MEDS: MELATONIN 5 MG TABLETS PO PRN (22:04)
[2019-06-29] MEDS: THIAMINE HCL 100 MG TABLET (FP) PO SCH (22:04)
[2019-06-30] MEDS ORDERED: LORazepam 0.5 MG TABLET PO PRN
[2019-06-30] MEDS: MAG HYDROX/AL HYDROX/SIMETH 30 ML UNIT-DOSE CUP PO PRN (01:51)
[2019-06-30] MEDS: METHOCARBAMOL 500 MG TABLET PO PRN (03:35)
[2019-06-30] MEDS: hydrOXYzine PAMOATE 25 MG CAPSULE (FP) PO PRN ×2 (03:35→18:50)
[2019-06-30] MEDS ORDERED: METHADONE HCL 10 MG TABLET ONE (04:12)
[2019-06-30] MEDS ORDERED: METHADONE HCL 40 MG DISPERSABLE TABLET ONE (04:13)
[2019-06-30] MEDS: METHADONE 80 MG, METHADONE 20 MG PO SCH (05:43)
[2019-06-30] MEDS: LORazepam 0.5 MG TABLET PO SCH ×3 (05:43→17:01)
[2019-06-30] MEDS: PRENATAL VITAMINS W/ FOLIC ACID TABLET (FP) PO SCH (10:04)
[2019-06-30] MEDS: NICOTINE 14 MG/24 HOURS TOPICAL PATCH TD SCH (10:04)
[2019-06-30] MEDS ORDERED: LOPERAMIDE HCL 2 MG CAPSULE PO PRN (10:34)
--- NOTE | 2019-06-30 10:36 | PN ---
S CIWA - CIWA Score Nausea/Vomitin-No Nausea/No Vomiting Muscle Tremors: 2 Anxiety: 1-Mildly Anxious Agitation: 0-Normal Activity Paroxysmal Sweats: 1-Minimal Palms Moist Orientation: 0-Oriented Tacttile Disturbances: 0-None Auditory Disturbances: 0-None Visual Disturbances: 0-None Headache: 0-None Present CIWA-Ar Total Score: 4 BHS Progress Note (SOAP) Subjective: diarrhea shakes insomnia Objective: 06/30/19 10:35 Vital Signs Temperature 97.5 F L 06/30/19 09:24 Pulse Rate 81 06/30/19 09:24 Respiratory Rate 18 06/30/19 09:24 Blood Pressure 124/72 06/30/19 09:24 O2 Sat by Pulse Oximetry (%) aaox3 ambulating no acute distress Assessment: 06/30/19 10:36 mild withdrawals Plan: continue detox imodium prn seroquel 50mg x one tonight
[2019-06-30] MEDS: LORazepam 0.5 MG TABLET PO PRN (12:42)
[2019-06-30] MEDS: THIAMINE HCL 100 MG TABLET (FP) PO SCH (21:10)
[2019-06-30] MEDS ORDERED: QUEtiapine FUMARATE 50 MG TABLET PO SCH (22:00)
[2019-07-01] MEDS: MELATONIN 5 MG TABLETS PO PRN
[2019-07-01] MEDS ORDERED: METHADONE HCL 10 MG TABLET ONE (04:04)
[2019-07-01] MEDS ORDERED: METHADONE HCL 40 MG DISPERSABLE TABLET ONE (04:05)
[2019-07-01] MEDS ORDERED: LORazepam 0.5 MG TABLET PO ONE (05:00)
[2019-07-01] MEDS: METHADONE 80 MG, METHADONE 20 MG PO SCH (05:23)
--- NOTE | 2019-07-01 08:16 | DS ---
[facility] Detox Discharge Summary Admission Date: 06/26/19 - History Present History: Cannabis Dependence, Cocaine Dependence, Sedative Dependence, MMTP - Physical Exam Results Vital Signs: Vital Signs Temperature 97.2 F L 07/01/19 06:18 Pulse Rate 63 07/01/19 06:18 Respiratory Rate 18 07/01/19 06:18 Blood Pressure 110/81 07/01/19 06:18 O2 Sat by Pulse Oximetry (%) Pertinent Admission Physical Exam Findings: Vital Signs Temperature 97.2 F L 07/01/19 06:18 Pulse Rate 63 07/01/19 06:18 Respiratory Rate 18 07/01/19 06:18 Blood Pressure 110/81 07/01/19 06:18 O2 Sat by Pulse Oximetry (%) Laboratory Tests 06/27/19 06/27/19 06/27/19 08:00 08:00 08:00 WBC 8.5 RBC 4.60 Hgb 12.9 Hct 40.5 MCV 88.0 MCH 28.1 MCHC 31.9 L RDW 16.1 H Plt Count 381 D MPV 7.9 Sodium 141 Potassium 4.2 Chloride 104 Carbon Dioxide 28 Anion Gap 9 BUN 11.4 Creatinine 0.8 Est GFR (CKD-EPI)AfAm 131.34 Est GFR (CKD-EPI)NonAf 113.32 Random Glucose 80 Calcium 9.4 Total Bilirubin 0.2 AST 38 H ALT 23 Alkaline Phosphatase 112 Total Protein 7.7 Albumin 3.3 L RPR Titer Nonreactive aaox3 ambulating no acute distress - Treatment Hospital Course: Detox Protocol Followed, Detoxed Safely, Responded well, Discharged Condition Good, Rehab Referral Accepted Patient has Accepted a Rehab Referral to: pt referred to inpatient rehab in [place] - Medication Discharge Medications: Ambulatory Orders Albuterol Sulfate Inhaler - [Ventolin Hfa Inhaler -] 2 inh PO Q4H PRN 06/18/15 - Diagnosis (1) Cannabis dependence Current Visit: Yes Status: Chronic (2) Cocaine dependence Current Visit: Yes Status: Chronic Qualifiers: Substance use status: uncomplicated Qualified Code(s): F14.20 - Cocaine dependence, uncomplicated (3) Depression Current Visit: No Status: Acute (4) Heroin abuse Current Visit: No Status: Acute (5) Post traumatic stress disorder Current Visit: No Status: Acute (6) Sedative hypnotic or anxiolytic dependence Current Visit: No Status: Acute (7) Substance-induced sleep disorder Current Visit: No Status: Acute (8) Weight loss Current Visit: No Status: Acute (9) Xanax use disorder, severe, dependence Current Visit: No Status: Acute (10) Attention deficit disorder (ADD) Current Visit: No Status: Chronic (11) Bronchial asthma Current Visit: No Status: Chronic Qualifiers: Asthma severity: mild intermittent Asthma complication type: uncomplicated (12) Hepatitis C Current Visit: No Status: Chronic Qualifiers: Viral hepatitis chronicity: chronic Hepatic coma status: without hepatic coma Qualified Code(s): B18.2 - Chronic viral hepatitis C (13) Methadone maintenance therapy patient Current Visit: No Status: Chronic (14) Nicotine dependence Current Visit: No Status: Chronic Qualifiers: Nicotine product type: cigarettes Substance use status: uncomplicated Qualified Code(s): F17.210 - Nicotine dependence, cigarettes, uncomplicated - AMA Did Patient Leave Against Medical Advice: No
[2019-07-01] MEDS: NICOTINE 14 MG/24 HOURS TOPICAL PATCH TD SCH (09:13)
[2019-07-01] MEDS: PRENATAL VITAMINS W/ FOLIC ACID TABLET (FP) PO SCH (09:13)
[2019-07-01 09:30] VITALS: BP 107/65; PULSE 75; TEMP 98.1
[2019-07-01] MEDS: hydrOXYzine PAMOATE 25 MG CAPSULE (FP) PO PRN (13:27)
[2019-07-01] MEDS: METHOCARBAMOL 500 MG TABLET PO PRN (13:27)
--- NOTE | 2019-07-01 17:03 | PN ---
S Progress Note Note: irritable,anxious Vital Signs Temperature 98.1 F 07/01/19 09:29 Pulse Rate 75 07/01/19 09:29 Respiratory Rate 18 07/01/19 09:29 Blood Pressure 107/65 07/01/19 09:29 O2 Sat by Pulse Oximetry (%) vistaril 50 mgs po now close monitoring
[2019-07-01] MEDS ORDERED: hydrOXYzine PAMOATE 50 MG CAPSULE (FP) PO ONE (17:30)
== END 2019-07-01 18:09 | disposition other institution (70) | DRG 773 ==
LOC: YASAS 15:36 → Y6N 19:35
PROVIDERS: ADMIT Allergy & Immunology; ATTEND Allergy & Immunology
PROC: HZ2ZZZZ Detoxification Services for Substance Abuse Treatment (ICD-10-PCS; principal; 2019-06-26)
DX: F13.230 Sedative, hypnotic or anxiolytic dependence with withdrawal, uncomplicated (principal); F11.20 Opioid dependence, uncomplicated; F14.20 Cocaine dependence, uncomplicated; F12.20 Cannabis dependence, uncomplicated; F17.210 Nicotine dependence, cigarettes, uncomplicated; F32.9 Major depressive disorder, single episode, unspecified; F43.10 Post-traumatic stress disorder, unspecified; F19.282 Other psychoactive substance dependence with psychoactive substance-induced sleep disorder; F98.8 Other specified behavioral and emotional disorders with onset usually occurring in childhood and adolescence; B18.2 Chronic viral hepatitis C; J45.20 Mild intermittent asthma, uncomplicated; R63.4 Abnormal weight loss; Z96.642 Presence of left artificial hip joint; Z91.013 Allergy to seafood
CPT/HCPCS: 36415; 80053; 85027; 86593

== ENCOUNTER 2019-07-01 18:24 | Inpatient (IN) | payer OTHER ==
[2019-07-01] MEDS ORDERED: guaiFENesin 200 MG/10 ML 10 ML UNIT-DOSE CUPS PO PRN (19:46)
[2019-07-01] MEDS ORDERED: MAGNESIUM CITRATE 300 ML BOTTLE PO PRN (19:46)
[2019-07-01] MEDS ORDERED: ACETAMINOPHEN 325 MG TABLET (FP) PO PRN (19:46)
[2019-07-01] MEDS ORDERED: P-EPHED 60MG/TRIPROLIDI 2.5MG TABLET PO PRN (19:46)
[2019-07-01] MEDS ORDERED: MENTHOL/PHENOL 1 EACH UD MM PRN (19:46)
[2019-07-01] MEDS ORDERED: LOPERAMIDE HCL 2 MG CAPSULE PO PRN (19:46)
[2019-07-01] MEDS ORDERED: IBUPROFEN 400 MG TABLET (FP) PO PRN (19:46)
[2019-07-01] MEDS: QUEtiapine FUMARATE 50 MG TABLET PO SCH (21:08)
[2019-07-01] MEDS: THIAMINE HCL 100 MG TABLET (FP) PO SCH (21:08)
[2019-07-01] MEDS: MELATONIN 5 MG TABLETS PO PRN (21:08)
[2019-07-01] MEDS: MAG HYDROX/AL HYDROX/SIMETH 30 ML UNIT-DOSE CUP PO PRN (23:53)
[2019-07-02] MEDS ORDERED: METHADONE HCL 40 MG DISPERSABLE TABLET ONE (05:08)
[2019-07-02] MEDS ORDERED: METHADONE HCL 10 MG TABLET ONE (05:08)
[2019-07-02] MEDS: METHADONE 80 MG, METHADONE 20 MG PO SCH (05:44)
[2019-07-02] MEDS ORDERED: METHADONE HCL 40 MG DISPERSABLE TABLET PO SCH (06:00)
[2019-07-02] MEDS ORDERED: ALBUTEROL SO4 8 GM HFA INHALER IH ONE (07:48)
[2019-07-02] MEDS: MAG HYDROX/AL HYDROX/SIMETH 30 ML UNIT-DOSE CUP PO PRN (09:32)
[2019-07-02] MEDS: PRENATAL VITAMINS W/ FOLIC ACID TABLET (FP) PO SCH (09:32)
[2019-07-02] MEDS: hydrOXYzine PAMOATE 50 MG CAPSULE (FP) PO PRN ×3 (10:06→18:04)
[2019-07-02] MEDS ORDERED: ALBUTEROL SO4 8 GM HFA INHALER IH PRN (10:54)
[2019-07-02] MEDS ORDERED: NICOTINE POLACRILEX 4 MG GUM BUC PRN (13:25)
[2019-07-02] MEDS: NICOTINE 21 MG/24 HOURS TOPICAL PATCH TD SCH (14:00)
[2019-07-02] MEDS: MELATONIN 5 MG TABLETS PO PRN (21:22)
[2019-07-02] MEDS: THIAMINE HCL 100 MG TABLET (FP) PO SCH (21:22)
[2019-07-02] MEDS: QUEtiapine FUMARATE 50 MG TABLET PO SCH (21:22)
[2019-07-03] MEDS ORDERED: METHADONE HCL 40 MG DISPERSABLE TABLET ONE (05:40)
[2019-07-03] MEDS ORDERED: METHADONE HCL 10 MG TABLET ONE (05:40)
[2019-07-03] MEDS: METHADONE 80 MG, METHADONE 20 MG PO SCH (05:50)
[2019-07-03] MEDS: PRENATAL VITAMINS W/ FOLIC ACID TABLET (FP) PO SCH (09:33)
[2019-07-03] MEDS: hydrOXYzine PAMOATE 50 MG CAPSULE (FP) PO PRN ×2 (09:33→13:19)
[2019-07-03] MEDS: NICOTINE 21 MG/24 HOURS TOPICAL PATCH TD SCH (09:33)
--- NOTE | 2019-07-03 14:38 | PN ---
BHS Progress Note (SOAP) Subjective: Patient c/o anxiety not relived by vistaril. Also c/o insomnia Objective: 07/03/19 14:36 Vital Signs Period Temp Pulse Resp BP Sys/Dudley Pulse Ox Last 24 Hr 97.4 F 61 18-20 129/76 General: no apparent distress HEENTM: PERRLA Neuro: CN 2-12 intact Assessment: anxiety Insomnia 07/03/19 14:37 Plan: Psychiatric consult placed Vitaril at maximum dose melatonin increased to 10mg
--- NOTE | 2019-07-03 15:45 | CONSULT ---
[facility] Psychiatric Consult - Data Date of interview: 07/03/19 Admission source: [facility] Identifying data: Patient is a 38 year old single male, father of one, unemployed, homeless, and is not currently receiving financial assistance. This is patient's first admission to rehab at [facility]. Patient admitted to for cocaine and benzodiazepine dependence. Substance Abuse History: Smoking Cessation. Smoking history: Current every day smoker. Have you smoked in the past 12 months: Yes. Aproximately how many cigarettes per day: 20. Hx Chewing Tobacco Use: No. Initiated information on smoking cessation: Yes. 'Breaking Loose' booklet given: 06/26/19. - Substances abused. Alprazolam (Xanax). Substance route: Oral. Frequency: Daily. Amount used: 5 pills. Age of first use: 18. Date of last use: . Cocaine. Substance route: Injection. Frequency: Daily. Amount used: 30 dollars. Age of first use: 14. Date of last use: 06/25/19. Marijuana/ Hashish. Substance route: Smoking. Frequency: Daily. Amount used: 4 blunts. Age of first use: 16. Date of last use: 06/26/19 Medical History: Asthma, GERD, HEP C Psychiatric History: Patient's first encounter with a psychiatrist was at the age of [age]. Pt. was diagnosed with ADHD and prescribed Ritalin but is unable to recall if he accepted medications. Mr. Juarez reports past psychiatric treatment at [facility] and [facility]. Diagnosis of anxiety disorder. He reports past trials of elavil, buspar, and klonopin. He denies past psychiatric hospitalization and suicide attempt. At present he reports feeling anxious and difficulty sleeping. Physical/Sexual Abuse/Trauma History: denies. Mental Status Exam - Mental Status Exam Alert and Oriented to: Time, Place, Person Cognitive Function: Good Patient Appearance: Well Groomed Mood: Anxious Affect: Mood Congruent Patient Behavior: Appropriate, Cooperative Speech Pattern: Appropriate Voice Loudness: Normal Thought Process: Intact, Goal Oriented Thought Disorder: Not Present Hallucinations: Denies Suicidal Ideation: Denies Homicidal Ideation: Denies Insight/Judgement: Poor Sleep: Poorly Appetite: Fair Muscle strength/Tone: Normal Gait/Station: Normal Psychiatric Findings - Problem List (Burns 1, 2,3) (1) Sedative hypnotic or anxiolytic dependence Current Visit: Yes Status: Acute (2) Substance-induced sleep disorder Current Visit: Yes Status: Acute (3) Xanax use disorder, severe, dependence Current Visit: Yes Status: Acute (4) Cocaine dependence Current Visit: Yes Status: Chronic Qualifiers: Substance use status: uncomplicated Qualified Code(s): F14.20 - Cocaine dependence, uncomplicated (5) Methadone maintenance therapy patient Current Visit: Yes Status: Chronic (6) Substance-induced anxiety disorder Current Visit: Yes Status: Acute - Initial Treatment Plan Initial Treatment Plan: Psychoeducation provided. Rehab in progress. Will d/c vistaril 50mg q4h. Will order vistaril 75mg q6h + Buspar 10mg TID + Elavil 50mg HS. Benefit and side effects discussed. Verbal consent given.
[2019-07-03] MEDS: hydrOXYzine PAMOATE 25 MG CAPSULE (FP) PO PRN (16:38)
[2019-07-03] MEDS: AMITRIPTYLINE HCL 25 MG TABLET (FP) PO SCH (21:09)
[2019-07-03] MEDS: THIAMINE HCL 100 MG TABLET (FP) PO SCH (21:09)
[2019-07-03] MEDS: busPIRone HCL 10 MG TABLET (FP) PO SCH (21:09)
[2019-07-03] MEDS ORDERED: AMITRIPTYLINE HCL 50 MG TABLET PO SCH (22:00)
[2019-07-04] MEDS ORDERED: METHADONE HCL 10 MG TABLET ONE (05:40)
[2019-07-04] MEDS ORDERED: METHADONE HCL 40 MG DISPERSABLE TABLET ONE (05:40)
[2019-07-04] MEDS: METHADONE 80 MG, METHADONE 20 MG PO SCH (05:44)
[2019-07-04] MEDS: busPIRone HCL 10 MG TABLET (FP) PO SCH ×3 (05:44→21:22)
[2019-07-04] MEDS: PRENATAL VITAMINS W/ FOLIC ACID TABLET (FP) PO SCH (09:57)
[2019-07-04] MEDS: hydrOXYzine PAMOATE 25 MG CAPSULE (FP) PO PRN ×2 (09:57→15:28)
[2019-07-04] MEDS: NICOTINE 21 MG/24 HOURS TOPICAL PATCH TD SCH (09:57)
[2019-07-04] MEDS: AMITRIPTYLINE HCL 25 MG TABLET (FP) PO SCH (21:21)
[2019-07-04] MEDS: MELATONIN 5 MG TABLETS PO PRN (21:22)
[2019-07-04] MEDS: THIAMINE HCL 100 MG TABLET (FP) PO SCH (21:22)
[2019-07-04] MEDS: MAG HYDROX/AL HYDROX/SIMETH 30 ML UNIT-DOSE CUP PO PRN (22:20)
[2019-07-05] MEDS ORDERED: METHADONE HCL 10 MG TABLET ONE (05:10)
[2019-07-05] MEDS ORDERED: METHADONE HCL 40 MG DISPERSABLE TABLET ONE (05:11)
[2019-07-05] MEDS: METHADONE 80 MG, METHADONE 20 MG PO SCH (06:11)
[2019-07-05] MEDS: busPIRone HCL 10 MG TABLET (FP) PO SCH ×3 (06:12→21:14)
[2019-07-05] MEDS: NICOTINE 21 MG/24 HOURS TOPICAL PATCH TD SCH (09:34)
[2019-07-05] MEDS: PRENATAL VITAMINS W/ FOLIC ACID TABLET (FP) PO SCH (09:34)
[2019-07-05] MEDS: hydrOXYzine PAMOATE 25 MG CAPSULE (FP) PO PRN ×2 (09:35→15:26)
[2019-07-05] MEDS: MELATONIN 5 MG TABLETS PO PRN (21:14)
[2019-07-05] MEDS: THIAMINE HCL 100 MG TABLET (FP) PO SCH (21:14)
[2019-07-05] MEDS: AMITRIPTYLINE HCL 25 MG TABLET (FP) PO SCH (21:15)
[2019-07-06] MEDS ORDERED: METHADONE HCL 40 MG DISPERSABLE TABLET ONE (03:25)
[2019-07-06] MEDS ORDERED: METHADONE HCL 10 MG TABLET ONE (03:25)
[2019-07-06] MEDS: METHADONE 80 MG, METHADONE 20 MG PO SCH (06:23)
[2019-07-06] MEDS: busPIRone HCL 10 MG TABLET (FP) PO SCH ×3 (06:23→21:00)
[2019-07-06] MEDS: NICOTINE 21 MG/24 HOURS TOPICAL PATCH TD SCH (09:39)
[2019-07-06] MEDS: PRENATAL VITAMINS W/ FOLIC ACID TABLET (FP) PO SCH (09:39)
[2019-07-06] MEDS: hydrOXYzine PAMOATE 25 MG CAPSULE (FP) PO PRN (09:40)
[2019-07-06] MEDS: THIAMINE HCL 100 MG TABLET (FP) PO SCH (21:00)
[2019-07-06] MEDS: AMITRIPTYLINE HCL 25 MG TABLET (FP) PO SCH (21:01)
[2019-07-06] MEDS: MELATONIN 5 MG TABLETS PO PRN (21:01)
[2019-07-07] MEDS ORDERED: METHADONE HCL 10 MG TABLET ONE (04:02)
[2019-07-07] MEDS ORDERED: METHADONE HCL 40 MG DISPERSABLE TABLET ONE (04:02)
[2019-07-07] MEDS: busPIRone HCL 10 MG TABLET (FP) PO SCH ×3 (06:00→21:20)
[2019-07-07] MEDS: METHADONE 80 MG, METHADONE 20 MG PO SCH (06:00)
[2019-07-07] MEDS: NICOTINE 21 MG/24 HOURS TOPICAL PATCH TD SCH (09:30)
[2019-07-07] MEDS: PRENATAL VITAMINS W/ FOLIC ACID TABLET (FP) PO SCH (09:30)
[2019-07-07] MEDS: hydrOXYzine PAMOATE 25 MG CAPSULE (FP) PO PRN ×2 (09:31→16:29)
[2019-07-07] MEDS ORDERED: PT OWN MED DRAWER 7, Y5N ONE (19:25)
[2019-07-07] MEDS: AMITRIPTYLINE HCL 25 MG TABLET (FP) PO SCH (21:19)
[2019-07-07] MEDS: THIAMINE HCL 100 MG TABLET (FP) PO SCH (21:20)
[2019-07-07] MEDS: MELATONIN 5 MG TABLETS PO PRN (23:30)
[2019-07-08] MEDS: MAG HYDROX/AL HYDROX/SIMETH 30 ML UNIT-DOSE CUP PO PRN (00:10)
[2019-07-08] MEDS ORDERED: METHADONE HCL 10 MG TABLET ONE (03:33)
[2019-07-08] MEDS ORDERED: METHADONE HCL 40 MG DISPERSABLE TABLET ONE (03:33)
[2019-07-08] MEDS: busPIRone HCL 10 MG TABLET (FP) PO SCH ×3 (06:05→21:20)
[2019-07-08] MEDS: METHADONE 80 MG, METHADONE 20 MG PO SCH (06:05)
[2019-07-08] MEDS: hydrOXYzine PAMOATE 25 MG CAPSULE (FP) PO PRN ×2 (09:39→15:38)
[2019-07-08] MEDS: PRENATAL VITAMINS W/ FOLIC ACID TABLET (FP) PO SCH (09:39)
[2019-07-08] MEDS: NICOTINE 21 MG/24 HOURS TOPICAL PATCH TD SCH (09:39)
[2019-07-08] MEDS: MAGNESIUM HYDROX 2400MG/30ML ORAL SUSPENSION 30 ML CUP PO PRN (13:13)
[2019-07-08] MEDS: MELATONIN 5 MG TABLETS PO PRN (21:20)
[2019-07-08] MEDS: THIAMINE HCL 100 MG TABLET (FP) PO SCH (21:20)
[2019-07-08] MEDS: AMITRIPTYLINE HCL 25 MG TABLET (FP) PO SCH (21:20)
[2019-07-09] MEDS: MAG HYDROX/AL HYDROX/SIMETH 30 ML UNIT-DOSE CUP PO PRN ×2 (00:25→22:34)
[2019-07-09] MEDS ORDERED: METHADONE HCL 10 MG TABLET ONE (04:03)
[2019-07-09] MEDS ORDERED: METHADONE HCL 40 MG DISPERSABLE TABLET ONE (04:03)
[2019-07-09] MEDS: DOCUSATE SODIUM 100 MG CAPSULE (FP) PO SCH ×2 (06:09→09:34)
[2019-07-09] MEDS: METHADONE 80 MG, METHADONE 20 MG PO SCH (06:09)
[2019-07-09] MEDS: busPIRone HCL 10 MG TABLET (FP) PO SCH ×3 (06:09→21:39)
[2019-07-09] MEDS: PRENATAL VITAMINS W/ FOLIC ACID TABLET (FP) PO SCH (09:34)
[2019-07-09] MEDS: hydrOXYzine PAMOATE 25 MG CAPSULE (FP) PO PRN ×2 (09:34→17:29)
[2019-07-09] MEDS: NICOTINE 21 MG/24 HOURS TOPICAL PATCH TD SCH (09:34)
[2019-07-09] MEDS: AMITRIPTYLINE HCL 25 MG TABLET (FP) PO SCH (21:39)
[2019-07-09] MEDS: THIAMINE HCL 100 MG TABLET (FP) PO SCH (21:40)
[2019-07-09] MEDS: MELATONIN 5 MG TABLETS PO PRN (21:40)
[2019-07-10] MEDS ORDERED: METHADONE HCL 40 MG DISPERSABLE TABLET ONE (04:01)
[2019-07-10] MEDS ORDERED: METHADONE HCL 10 MG TABLET ONE (04:01)
[2019-07-10] MEDS: METHADONE 80 MG, METHADONE 20 MG PO SCH (05:57)
[2019-07-10] MEDS: busPIRone HCL 10 MG TABLET (FP) PO SCH ×3 (05:57→21:13)
[2019-07-10] MEDS: hydrOXYzine PAMOATE 25 MG CAPSULE (FP) PO PRN ×2 (09:55→17:28)
[2019-07-10] MEDS: NICOTINE 21 MG/24 HOURS TOPICAL PATCH TD SCH (09:55)
[2019-07-10] MEDS: PRENATAL VITAMINS W/ FOLIC ACID TABLET (FP) PO SCH (09:55)
[2019-07-10] MEDS: DOCUSATE SODIUM 100 MG CAPSULE (FP) PO SCH (09:55)
[2019-07-10] MEDS: MAG HYDROX/AL HYDROX/SIMETH 30 ML UNIT-DOSE CUP PO PRN (19:23)
[2019-07-10] MEDS: AMITRIPTYLINE HCL 25 MG TABLET (FP) PO SCH (21:13)
[2019-07-10] MEDS: THIAMINE HCL 100 MG TABLET (FP) PO SCH (21:14)
[2019-07-10] MEDS: MELATONIN 5 MG TABLETS PO PRN (21:14)
[2019-07-11] MEDS ORDERED: METHADONE HCL 40 MG DISPERSABLE TABLET ONE (04:03)
[2019-07-11] MEDS ORDERED: METHADONE HCL 10 MG TABLET ONE (04:03)
[2019-07-11] MEDS: METHADONE 80 MG, METHADONE 20 MG PO SCH (05:56)
[2019-07-11] MEDS: busPIRone HCL 10 MG TABLET (FP) PO SCH ×3 (05:56→21:32)
[2019-07-11] MEDS: NICOTINE 21 MG/24 HOURS TOPICAL PATCH TD SCH (09:44)
[2019-07-11] MEDS: PRENATAL VITAMINS W/ FOLIC ACID TABLET (FP) PO SCH (09:44)
[2019-07-11] MEDS: hydrOXYzine PAMOATE 25 MG CAPSULE (FP) PO PRN ×2 (09:46→16:44)
[2019-07-11] MEDS: THIAMINE HCL 100 MG TABLET (FP) PO SCH (21:32)
[2019-07-11] MEDS: AMITRIPTYLINE HCL 25 MG TABLET (FP) PO SCH (21:32)
[2019-07-11] MEDS: MELATONIN 5 MG TABLETS PO PRN (21:32)
[2019-07-11] MEDS: MAG HYDROX/AL HYDROX/SIMETH 30 ML UNIT-DOSE CUP PO PRN (21:33)
[2019-07-12] MEDS ORDERED: METHADONE HCL 40 MG DISPERSABLE TABLET ONE (04:08)
[2019-07-12] MEDS ORDERED: METHADONE HCL 10 MG TABLET ONE (04:08)
[2019-07-12] MEDS: busPIRone HCL 10 MG TABLET (FP) PO SCH ×3 (06:03→21:10)
[2019-07-12] MEDS: METHADONE 80 MG, METHADONE 20 MG PO SCH (06:03)
[2019-07-12] MEDS: DOCUSATE SODIUM 100 MG CAPSULE (FP) PO SCH (06:03)
[2019-07-12] MEDS: NICOTINE 21 MG/24 HOURS TOPICAL PATCH TD SCH (09:49)
[2019-07-12] MEDS: hydrOXYzine PAMOATE 25 MG CAPSULE (FP) PO PRN ×2 (09:49→14:59)
[2019-07-12] MEDS: PRENATAL VITAMINS W/ FOLIC ACID TABLET (FP) PO SCH (09:49)
[2019-07-12] MEDS: MAG HYDROX/AL HYDROX/SIMETH 30 ML UNIT-DOSE CUP PO PRN (13:29)
[2019-07-12] MEDS: THIAMINE HCL 100 MG TABLET (FP) PO SCH (21:10)
[2019-07-12] MEDS: AMITRIPTYLINE HCL 25 MG TABLET (FP) PO SCH (21:10)
[2019-07-12] MEDS: MAGNESIUM HYDROX 2400MG/30ML ORAL SUSPENSION 30 ML CUP PO PRN (21:11)
[2019-07-12] MEDS: MELATONIN 5 MG TABLETS PO PRN (21:13)
[2019-07-13] MEDS ORDERED: METHADONE HCL 40 MG DISPERSABLE TABLET ONE (03:48)
[2019-07-13] MEDS ORDERED: METHADONE HCL 10 MG TABLET ONE (03:48)
[2019-07-13] MEDS: busPIRone HCL 10 MG TABLET (FP) PO SCH ×3 (05:56→21:09)
[2019-07-13] MEDS: DOCUSATE SODIUM 100 MG CAPSULE (FP) PO SCH (05:56)
[2019-07-13] MEDS: METHADONE 80 MG, METHADONE 20 MG PO SCH (05:56)
[2019-07-13] MEDS: MAGNESIUM HYDROX 2400MG/30ML ORAL SUSPENSION 30 ML CUP PO PRN ×2 (05:57→13:53)
[2019-07-13] MEDS: hydrOXYzine PAMOATE 25 MG CAPSULE (FP) PO PRN ×2 (09:44→21:10)
[2019-07-13] MEDS: PRENATAL VITAMINS W/ FOLIC ACID TABLET (FP) PO SCH (09:44)
[2019-07-13] MEDS: NICOTINE 21 MG/24 HOURS TOPICAL PATCH TD SCH (09:44)
[2019-07-13] MEDS: THIAMINE HCL 100 MG TABLET (FP) PO SCH (21:09)
[2019-07-13] MEDS: MELATONIN 5 MG TABLETS PO PRN (21:09)
[2019-07-13] MEDS: AMITRIPTYLINE HCL 25 MG TABLET (FP) PO SCH (21:09)
[2019-07-14] MEDS ORDERED: METHADONE HCL 10 MG TABLET ONE (04:29)
[2019-07-14] MEDS ORDERED: METHADONE HCL 40 MG DISPERSABLE TABLET ONE (04:29)
[2019-07-14] MEDS: busPIRone HCL 10 MG TABLET (FP) PO SCH ×3 (06:00→21:34)
[2019-07-14] MEDS: METHADONE 80 MG, METHADONE 20 MG PO SCH (06:00)
[2019-07-14] MEDS: DOCUSATE SODIUM 100 MG CAPSULE (FP) PO SCH (06:00)
[2019-07-14] MEDS: PRENATAL VITAMINS W/ FOLIC ACID TABLET (FP) PO SCH (09:59)
[2019-07-14] MEDS: NICOTINE 21 MG/24 HOURS TOPICAL PATCH TD SCH (09:59)
[2019-07-14] MEDS: hydrOXYzine PAMOATE 25 MG CAPSULE (FP) PO PRN ×2 (10:01→18:20)
--- NOTE | 2019-07-14 12:44 | DS ---
[facility] Rehab Discharge Summary - [facility] Rehab Discharge Summary Admission Date: 07/01/19 Discharge Date: 07/14/19 - History Present History: Cannabis dependence, MMTP, Opioid dependence, Sedative dependence - Discharge Physical Exam Vital Signs: Vital Signs Temperature 98 F 07/14/19 06:13 Pulse Rate 68 07/14/19 06:13 Respiratory Rate 18 07/14/19 06:13 Blood Pressure 117/80 07/14/19 06:13 O2 Sat by Pulse Oximetry (%) ROS: DENIES CP, SOB, SHAKES, SWEATS AND OPIOD/ETOH/SEDATIVE CRAVINGS PE: ALERT AND ORIENTED X 3 SKIN WARM AND DRY +PERRLA, EOMS INTACT BL CAR S1S2 RESP CTA BL EXT NO TREMORS, AMB AD ROBI DENIES SI/HI Pertinent Admission Physical Exam Findings: PATIENT SCHEDULED FOR DISCHARGE FROM REHAB TOMORROW MORNING. PATIENT HAS AFTERCARE ARRANGED FOR THE MMTP AT [facility]. PATIENT TO ENCOURAGED TO ATTEND GROUP MEETINGS AND TO FOLLOW UP WITH PCP RECOMMENDED. PATIENT IS MEDICALLY STABLE AT THIS TIME AND DENIES SI/HI. PATIENT ENCOURAGED TO CONTINUE WITH GROUP MEETINGS TO PREVENT RELAPSE. DURING HOSPITAL COURSE, HE ATTENDED GROUP MEETINGS, 1:1 SESSIONS WITH COUNSELOR AND EVALUATED AND TREATED BY PSYCHIATRIST. Vital Signs (72 hours) 07/12/19 07/12/19 07/12/19 00:30 03:30 06:45 Temperature 98.6 F Pulse Rate 83 Respiratory 18 18 18 Rate Blood Pressure 128/85 07/13/19 07/13/19 07/13/19 00:30 03:30 07:11 Temperature 97.8 F Pulse Rate 67 Respiratory 18 18 18 Rate Blood Pressure 119/72 07/14/19 07/14/19 07/14/19 00:30 03:30 06:13 Temperature 98 F Pulse Rate 68 Respiratory 18 18 18 Rate Blood Pressure 117/80 - Treatment Discharge Condition: Discharge condition good - Medication Discharge Medications: Ambulatory Orders Albuterol Sulfate Inhaler - [Ventolin HFA Inhaler -] 2 inh PO Q4H PRN #1 inhaler 07/14/19 Docusate Sodium [Colace] 100 mg PO TID PRN #60 capsule 07/14/19 - Medication-Assisted Treatment (MAT) Medication-Assisted Treatment (MAT): Yes MAT Follow-up Referral: MMTP AT [facility] - Discharge Instructions Diet, activity, other medical instructions: Diet: Activity: Other medical instructions: - Follow-up Referral Minutes to complete discharge: 30 - AMA Did Patient Leave Against Medical Advice: No
[2019-07-14] MEDS: AMITRIPTYLINE HCL 25 MG TABLET (FP) PO SCH (21:34)
[2019-07-14] MEDS: MELATONIN 5 MG TABLETS PO PRN (21:34)
[2019-07-14] MEDS: THIAMINE HCL 100 MG TABLET (FP) PO SCH (21:34)
[2019-07-15] MEDS ORDERED: METHADONE HCL 40 MG DISPERSABLE TABLET ONE (03:47)
[2019-07-15] MEDS ORDERED: METHADONE HCL 10 MG TABLET ONE (03:47)
[2019-07-15] MEDS: METHADONE 80 MG, METHADONE 20 MG PO SCH (06:05)
[2019-07-15] MEDS: DOCUSATE SODIUM 100 MG CAPSULE (FP) PO SCH (06:06)
[2019-07-15] MEDS: busPIRone HCL 10 MG TABLET (FP) PO SCH (06:07)
[2019-07-15 06:18] VITALS: BP 115/71; PULSE 72; TEMP 97.1
[2019-07-15] MEDS: PRENATAL VITAMINS W/ FOLIC ACID TABLET (FP) PO SCH (09:00)
[2019-07-15] MEDS: hydrOXYzine PAMOATE 25 MG CAPSULE (FP) PO PRN (09:00)
[2019-07-15] MEDS: NICOTINE 21 MG/24 HOURS TOPICAL PATCH TD SCH (09:02)
== END 2019-07-15 09:05 | disposition home or self-care (01) | DRG 772 ==
LOC: YASAS 18:24 → Y3W 18:25
PROVIDERS: ADMIT Neuromusculoskeletal Medicine & OMM; ATTEND Neuromusculoskeletal Medicine & OMM
PROC: HZ42ZZZ Group Counseling for Substance Abuse Treatment, Cognitive-Behavioral (ICD-10-PCS; principal; 2019-07-01)
DX: F13.20 Sedative, hypnotic or anxiolytic dependence, uncomplicated (principal); F11.20 Opioid dependence, uncomplicated; F14.20 Cocaine dependence, uncomplicated; F12.20 Cannabis dependence, uncomplicated; F19.280 Other psychoactive substance dependence with psychoactive substance-induced anxiety disorder; F19.282 Other psychoactive substance dependence with psychoactive substance-induced sleep disorder; F41.9 Anxiety disorder, unspecified; K21.9 Gastro-esophageal reflux disease without esophagitis; G47.00 Insomnia, unspecified; Z86.19 Personal history of other infectious and parasitic diseases